=== PATIENT | male | born 1970 | race Caucasian/White ===

== ENCOUNTER → 2020-12-31 | Outpatient (CLI) | payer BC ==
[~2020-12-31] MED LIST: BETAPACE120 MG PO; BETAPACE80 MG PO; ECOTRIN81 MG PO; ELIQUIS5 MG PO; FLOMAX0.4 MG PO; GLUCOPHAGE850 MG PO; GUSELKUMAB 100 MG/ML SC; IMDUR ER TAB 3030 MG PO; LIPITOR TAB 2020 MG PO; LISINOPRIL20 MG PO; LOPRESSOR 25 MG25 MG PO; NITROSTAT0.4 MG SL; ONCE DAILY1 EACH PO; PERCOCET 5-3251 EACH PO; TORADOL 10 MG T10 MG PO; TREMFYA; ZOFRAN ODT 4 MG4 MG PO
[2020-12-31 09:24] LABS: HEMOGLOBIN 15.2 gm/dl (14.0-17.5); RED BLOOD COUNT 4.91 M/UL (4.20-5.50); WHITE BLOOD COUNT 14.8 K/UL (4.5-11.0)
[2020-12-31 09:50] LABS: BUN/CREATININE RATIO 29 (0-10)
[2021-01-01 12:14] LABS: C-PEPTIDE, SERUM 3.8 ng/mL (1.1-4.4)
== END ==
LOC: LAB 07:55
PROVIDERS: Family Medicine
DX: Z12.5 Encounter for screening for malignant neoplasm of prostate (principal); E11.9 Type 2 diabetes mellitus without complications; E78.5 Hyperlipidemia, unspecified; I10 Essential (primary) hypertension; E55.9 Vitamin D deficiency, unspecified
CPT/HCPCS: 36415; 80053; 80061; 82043; 84153; 84439; 84443; 84681; 85027

== ENCOUNTER 2021-01-31 14:19 | Emergency (ER) | payer BC ==
[~2021-01-31] VITALS: Ht 182.9 cm; Wt 118.4 kg
== END 2021-01-31 17:17 | disposition home or self-care (01) ==
LOC: ER1 14:19
DX: U07.1 COVID-19 (principal); Z23 Encounter for immunization; I48.91 Unspecified atrial fibrillation; E78.5 Hyperlipidemia, unspecified; E11.9 Type 2 diabetes mellitus without complications; I10 Essential (primary) hypertension
CPT/HCPCS: 99283; M0243

== ENCOUNTER 2021-07-30 21:14 | Observation (INO) | payer BC ==
[~2021-07-30] VITALS: Ht 188 cm; Wt 156.5 kg
[2021-07-30 21:59] LABS: RED BLOOD COUNT 5.49 M/UL (4.20-5.50); WHITE BLOOD COUNT 25.1 K/UL (4.5-11.0)
[2021-07-30 22:22] LABS: BUN/CREATININE RATIO 35 (0-10)
[2021-07-31 06:53] LABS: HEMOGLOBIN 16.3 gm/dl (14.0-17.5); RED BLOOD COUNT 5.28 M/UL (4.20-5.50)
[2021-07-31 07:15] LABS: BUN/CREATININE RATIO 42 (0-10)
[2021-07-31] MEDS ORDERED: SKYRIZI150 MG/1 M SQ (08:38)
[2021-07-31] MEDS ORDERED: CARDIZEM SR 90M90 MG PO (11:29)
[2021-07-31] MEDS ORDERED: LISINOPRIL10 MG PO (11:29)
== END 2021-07-31 13:00 | disposition home or self-care (01) ==
LOC: ER1 21:14 → PROG CARE 23:42 → CDU 23:42 → PROG CARE 07-31 00:25
PROVIDERS: Internal Medicine; Physician Assistant Medical; ADMIT Internal Medicine
DX: I48.0 Paroxysmal atrial fibrillation (principal); D72.828 Other elevated white blood cell count; I10 Essential (primary) hypertension; E11.9 Type 2 diabetes mellitus without complications; E66.01 Morbid (severe) obesity due to excess calories; R60.9 Edema, unspecified; I20.9 Angina pectoris, unspecified; E78.5 Hyperlipidemia, unspecified; D69.6 Thrombocytopenia, unspecified; N40.0 Benign prostatic hyperplasia without lower urinary tract symptoms; L40.9 Psoriasis, unspecified; Z20.822 Contact with and (suspected) exposure to COVID-19; Z79.01 Long term (current) use of anticoagulants; Z79.82 Long term (current) use of aspirin; Z79.899 Other long term (current) drug therapy; Z68.41 Body mass index [BMI] 40.0-44.9, adult; Z82.49 Family history of ischemic heart disease and other diseases of the circulatory system
CPT/HCPCS: ECHO; 36415; 71045; 80053; 81001; 82550; 82553; 82962; 83735; 83880; 84100; 84439; 84443; 84484; 85025; 85610; 85730; 86140; 87040; 93005; 93306; 96374; 99285; G0378; Q9957; U0002

== ENCOUNTER → 2021-08-05 | Outpatient (CLI) | payer BC ==
[~2021-08-05] MED LIST changes: +CARDIZEM SR 90M90 MG PO; +LISINOPRIL10 MG PO; +SKYRIZI150 MG/1 M SQ
[2021-08-05 09:54] LABS: HEMOGLOBIN 15.3 gm/dl (14.0-17.5); RED BLOOD COUNT 4.98 M/UL (4.20-5.50); WHITE BLOOD COUNT 17.7 K/UL (4.5-11.0)
== END ==
LOC: LAB 09:34
PROVIDERS: Internal Medicine
DX: D72.829 Elevated white blood cell count, unspecified (principal)
CPT/HCPCS: 36415; 85025

== ENCOUNTER → 2021-09-01 | Outpatient (CLI) | payer BC ==
[2021-09-01 08:16] LABS: HEMOGLOBIN 14.8 gm/dl (14.0-17.5); RED BLOOD COUNT 4.83 M/UL (4.20-5.50); WHITE BLOOD COUNT 17.2 K/UL (4.5-11.0)
[2021-09-01 08:32] LABS: BUN/CREATININE RATIO 32 (0-10)
== END ==
LOC: LAB 07:42
PROVIDERS: Physician Assistant
DX: E78.5 Hyperlipidemia, unspecified (principal); I10 Essential (primary) hypertension; R00.2 Palpitations; I48.0 Paroxysmal atrial fibrillation
CPT/HCPCS: 36415; 80048; 85025

== ENCOUNTER → 2021-09-03 | Outpatient (CLI) | payer BC | END | disposition home or self-care (01) | LOC: CATH 07:13 | DX: I48.19 Other persistent atrial fibrillation (principal); I10 Essential (primary) hypertension; R00.2 Palpitations; I20.9 Angina pectoris, unspecified; E78.5 Hyperlipidemia, unspecified; E78.00 Pure hypercholesterolemia, unspecified; E11.9 Type 2 diabetes mellitus without complications; E66.9 Obesity, unspecified; Z68.41 Body mass index [BMI] 40.0-44.9, adult; Z79.01 Long term (current) use of anticoagulants; Z79.82 Long term (current) use of aspirin; Z79.84 Long term (current) use of oral hypoglycemic drugs; Z79.899 Other long term (current) drug therapy; Z72.89 Other problems related to lifestyle; Z82.49 Family history of ischemic heart disease and other diseases of the circulatory system | CPT/HCPCS: 82962; 92960; 93005; J1200; J1644; J1742; J2250; J2310; J2930; J3010; J7050 ==

== ENCOUNTER → 2021-10-06 | Outpatient (CLI) | payer BC ==
[2021-10-06 10:18] LABS: HEMOGLOBIN 14.4 gm/dl (14.0-17.5); RED BLOOD COUNT 4.67 M/UL (4.20-5.50)
[2021-10-06 10:39] LABS: BUN/CREATININE RATIO 32 (0-10)
[2021-10-07 11:17] LABS: CREATININE, URINE 122.3 mg/dL (Not Estab.)
== END ==
LOC: LAB 09:46
PROVIDERS: Nurse Practitioner Family
DX: I10 Essential (primary) hypertension (principal); E53.8 Deficiency of other specified B group vitamins; G47.30 Sleep apnea, unspecified; E55.9 Vitamin D deficiency, unspecified; D72.829 Elevated white blood cell count, unspecified; E11.9 Type 2 diabetes mellitus without complications
CPT/HCPCS: 36415; 80053; 80061; 82043; 82570; 82607; 82728; 83540; 83550; 84153; 84439; 84443; 85025

== ENCOUNTER → 2022-01-22 | Outpatient (CLI) | payer BC ==
[2022-01-22 09:39] LABS: BUN/CREATININE RATIO 30 (0-10)
== END ==
LOC: CT 08:52
PROVIDERS: Internal Medicine Hematology & Oncology
DX: C91.10 Chronic lymphocytic leukemia of B-cell type not having achieved remission (principal)
CPT/HCPCS: 36415; 70491; 71260; 80053; Q9967